=== PATIENT | male | born 1970 | race Caucasian/White ===

== ENCOUNTER → 2022-12-11 | Outpatient (CLI) | payer OTHER | END | disposition home or self-care (01) | LOC: SHCH 13:59 | PROVIDERS: ATTEND Internal Medicine | DX: I11.9 Hypertensive heart disease without heart failure (principal); R06.02 Shortness of breath | CPT/HCPCS: 93306 ==

== ENCOUNTER 2024-11-27 09:08 | Emergency (ER) | payer OTHER ==
[~2024-11-27] VITALS: Ht 188 cm; Wt 188.2 kg
[2024-11-27] MEDS: LIDOCAINE HCL 1% 20 ML VIAL ONE (09:52)
--- NOTE | 2024-11-27 09:54 | ERN ---
General Chief Complaint: Abscess Stated Complaint: ABSCESS Time Seen by MD: 09:14 History of Present Illness Initial Comments 54-year-old male who presents for perianal abscess. Patient reports last few days he has felt a bulge on his right lower gluteus. He went to an urgent care and was told he had an abscess but they were unable to drain it. He denies any systemic symptoms. On clinical exam he has a an abscess in the right lower gluteal area. It was not appear to track. Allergies: Coded Allergies: No Known Allergies (Unverified Allergy, Unknown, 11/27/24) Past Medical History Past Medical History: A-Fib Past Surgical History: Other ROS Dictation CONSTITUTIONAL: No chills, no fever, no weakness, no diaphoresis, no malaise. HEAD/FACE: No signs of trauma. EENT: No eye pain, no blurred vision, no tearing, no double vision, no ear pain, no ear discharge, no nose pain, no nasal congestion, no throat pain, no throat swelling, no mouth pain. RESPIRATORY: No cough, no orthopnea, no SOB, no stridor, no wheezing. CARDIOVASCULAR: No chest pain, no edema, no palpitations, no syncope. GASTROINTESTINAL/ABDOMINAL: Perianal pain GENITOURINARY: No abnormal discharge, no dysuria, no frequent urination, no hematuria. No complaints of pain in the genitals. MUSCULOSKELETAL: No back pain, no gout, no joint pain, no joint swelling, no muscle pain, no muscle stiffness, no neck pain. INTEGUMENTARY: No change in color, no change in hair/nails, no dryness, no lesion, no lumps, no rash. NEUROLOGICAL/PSYCH: No anxiety, not depressed, no emotional problem, no headache, no numbness, no pre-existing deficit, no history of seizures, no tremors, no weakness. HEMATOLOGIC/LYMPHATIC: Not anemic, no history of blood clots, no apparent bleeding, no bruising, glands not swollen. All Systems Negative, Except as Noted. Physical Exam Physical Exam Dictation VITAL SIGNS: Reviewed. GENERAL APPEARANCE: Alert, oriented x3, no acute distress, obese. HEAD AND FACE: Non-traumatic. EYES: PERRL, pink conjunctivas, eyelid no trauma, anterior chamber clear. EARS: Pinnas intact and no signs of trauma or erythema. Ear canals clear and no discharge. TMs no erythema. NOSE: No discharge, no bleeding. OROPHARYNX: Mouth normal, teeth no caries, tongue pink. Pharynx clear, no erythema. Tonsils no exudates, no abscesses noted. Mucous membrane moist. NECK: Supple, non-tender, no thyromegaly, no masses, no JVD, no bruits. BREAST: Deferred. CHEST: No tenderness, no crepitus, no paradoxical movement, no retractions. LUNGS: Clear, well-ventilated, symmetric, no rales, no wheezing, no rhonchi, no stridor, good breath sounds bilaterally. HEART: Regular rate, regular rhythm, no murmur, no gallops. VASCULAR: No peripheral edema. ABDOMEN: Soft, positive bowel sounds, nondistended, no guarding, nontender, no rebound, no masses no hepatomegaly, no splenomegaly, no Kan's sign, no hernias. RECTAL: Abscess to the right side of the anus GENITAL: Deferred. NEUROLOGICAL: Normal speech, gross motor function intact, gross sensory fu nction intact. MUSCULOSKELETAL: Neck nontender, full range of motion, back nontender, full range of motion. EXTREMITIES: Nontender, full range of motion. SKIN: Color pink, dry, no turgor, no rash, no lacerations, no abrasions, no contusions. LYMPHATICS: Deferred. [facility] CC: Perianal abscess Historian: Patient Comorbidities: Obesity Limitations by social determinants of health: None Differential diagnosis: Perirenal versus perirectal abscess Vital signs stable On clinical exams appears to be perianal abscess. Superficial abscess proximally he was size of a large grape on the right gluteus. It does not appear to track near the anus or near the rectum. Performed an incision and drainage without complication. Purulence drained. No packing placed. 1 cm linear incision. Patient already has a prescription for Bactrim and he was follow up schedule with a surgeon for next week. We will DC to continue those medications and follow up as an outpatient. ED Course Orders Procedure Category Date Status Time Lidocaine Hcl 1% 20ml PHA 11/27/24 Complete Vial (Lidocaine Hc 09:28 Current Medications Medications (Trade) Dose Ordered Sig/Karina Route PRN Reason Start Time Stop Time Status Last Admin Dose Admin Lidocaine HCl (Lidocaine HCl 1% 20ml Vial) 20 ml STK-MED ONCE .ROUTE 11/27/24 09:28 11/27/24 09:28 DC Vital Signs Date Time Temp Pulse Resp B/P (MAP) Pulse Ox O2 Delivery O2 Flow Rate FiO2 11/27/24 09:12 98.6 95 20 130/91 98 0 Incision and Drainage Incision and Drainage : Site: Perianal Blade Size: 11 I & D Procedure: no betadine prep Progress Perianal abscess Consent: Verbal Wound cleaned with Betadine 10 mL lidocaine injected 1 cm laceration linear Purulence drained Wound was explored, complex pockets were broken up and drained. Covered with gauze Patient will continue with the antibiotics Minimal blood loss No complications Patient to follow up with surgeon DX & DISP Disposition: Discharge Departure Impression: Primary Impression: Perianal abscess Condition: Stable Additional Instructions: The abscess was drained here in the ER. The abscess appears to be superficial on exam. There was no signs of tracking. The wound will likely seep and bleed for the next day or so. This is normal. Continually change the gauze. I recommend Sitz baths (Epson salt bath). Continue with the Bactrim. You can take [id number] ibuprofen (800 mg) or Tylenol (1000 mg) as needed for pain or discomfort. Please follow up with the surgeon for further evaluation. Return to the emergency department if you develop any significant pain, fevers, or any other concerning symptom. Referrals: SHARYN CARVALHO DO (PCP) ALESSANDRA SPRINGER DO Nov 27, 2024 09:54
[2024-11-27 09:59] VITALS: BP 125/88; PULSE 90; RESP 20; TEMP 98.6; O2SAT 98
== END 2024-11-27 10:09 | disposition home or self-care (01) ==
LOC: EDH 09:08
DX: K61.0 Anal abscess (principal); I48.91 Unspecified atrial fibrillation; E66.9 Obesity, unspecified
CPT/HCPCS: 10060; 99282